=== PATIENT | female | born 1955 | race Caucasian/White ===

== ENCOUNTER → 2018-02-20 14:47 | Outpatient (CLI) | payer OTHER, SELFPAY ==
--- NOTE | 2018-02-20 14:49 | BI_ITS ---
MAMMOGRAPHY - BILATERAL SCREENING REASON FOR EXAM: Female, 62 years old. Routine annual screening examination. PERTINENT HISTORY: Non-contributory. TECHNIQUE: Digital bilateral breast pilo (3D mammographic acquisition) in the CC and MLO projections. 2-D mediolateral oblique (MLO) and craniocaudad (CC) views of both breasts were obtained. CAD: Full Field Digital Mammography with Computer Added Detection was performed. COMPARISON: Comparison is made with prior study dated March 02, 2012 and July 14, 2009. FINDINGS: Breast Composition: The breasts are heterogeneously dense, which may obscure small masses. There are no dominant masses or suspicious calcifications. A tissue clip marker is seen in the deep upper lateral portion of the right breast. No other significant abnormalities are identified. There has been no significant change since the prior study. BI/SCREENING MAMM (CAD), BILAT IMPRESSION: Stable bilateral screening mammogram. Yearly follow-up mammogram recommended. (A) ASSESSMENT CATEGORY: BIRADS Category 2: Benign. A letter regarding these results will be sent to the patient by the facility within 30 days. Approximately 10% of breast cancers are not detected by mammography. A normal mammogram should not delay biopsy of a clinically suspicious abnormality. [id number] Electronically Signed: Juan F Watkins MD at 8:33 EDT Tel [phone], Service support ,
== END ==
PROVIDERS: Family Provider Family Medicine; PCP Family Medicine; Visit Provider Family Medicine
DX: Z12.31 Encounter for screening mammogram for malignant neoplasm of breast (principal)
CPT/HCPCS: 77063; 77067

== ENCOUNTER → 2019-05-21 | Outpatient (CLI) | payer MEDICARE, OTHER, SELFPAY ==
[2019-03-27 14:36] VITALS: BMI 33.5
--- NOTE | 2019-05-21 14:37 | BI_ITS ---
MAMMOGRAPHY - BILATERAL SCREENING REASON FOR EXAM: Female, 64 years old. Routine annual screening examination. PERTINENT HISTORY: Non-contributory. Palpable lump in the inner aspect of the left breast. TECHNIQUE: Digital bilateral breast enzo (3D mammographic acquisition) in the CC and MLO projections. 2-D mediolateral oblique (MLO) and craniocaudad (CC) views of both breasts were obtained. CAD: Full Field Digital Mammography with Computer Added Detection was performed. COMPARISON: Comparison is made with prior study dated February 20, 2018 and March 02, 2012. FINDINGS: Breast Composition: The breasts are heterogeneously dense, which may obscure small masses. There are no dominant masses or suspicious calcifications. No other significant abnormalities are identified. There has been no significant change since the prior study. BI/SCREEN MAMM (CAD) W/ENZO BILAT IMPRESSION: Stable bilateral screening mammogram. Yearly follow-up mammogram recommended. (A) ASSESSMENT CATEGORY: BIRADS Category 2: Benign. A letter regarding these results will be sent to the patient by the facility within 30 days. Approximately 10% of breast cancers are not detected by mammography. A normal mammogram should not delay biopsy of a clinically suspicious abnormality. [id number] Electronically Signed: Juan F Watkins, at 15:43 EDT , Service support ,
== END | disposition home or self-care (01) ==
LOC: OPBI 14:33
PROVIDERS: Family Provider Family Medicine; PCP Family Medicine; Referring Provider Family Medicine; Visit Provider Family Medicine
DX: Z12.31 Encounter for screening mammogram for malignant neoplasm of breast (principal)
CPT/HCPCS: 77063; 77067

== ENCOUNTER → 2019-05-24 | Outpatient (CLI) | payer MEDICARE, OTHER, SELFPAY ==
[2019-03-27 14:36] VITALS: BMI 33.5
--- NOTE | 2019-05-24 09:58 | US_ITS ---
STUDY: ULTRASOUND BREAST - LEFT REASON FOR EXAM: Female, 64 years old. Abnormal screening mammogram. TECHNIQUE: Axial and longitudinal images of the LEFT breast were performed with a high resolution ultrasound transducer. COMPARISON: Comparison is made with prior mammogram dated May 21, 2019. FINDINGS: LEFT Breast: The mammographic abnormality corresponds to a 2.3 cm x 2 cm x 0.9 cm irregular hypoechoic mass at 11:00 position of the breast at 2 cm from nipple. Increased vascularity is also seen. A biopsy is recommended. US/Breast Limited Unilateral IMPRESSION: 2.3 cm x 2 cm x 0.9 cm hypoechoic irregular mass at the 11:00 position of breast at 2 cm from nipple. A biopsy is recommended. ASSESSMENT CATEGORY: BIRADS Category 5: Highly Suggestive of Malignancy - Appropriate Action Should Be Taken. A letter regarding these results will be sent to the patient by the facility within 30 days. Electronically Signed: Juan F Watkins, at 12:22 EDT , Service support ,
== END | disposition home or self-care (01) ==
LOC: OPUS 09:44
PROVIDERS: Family Provider Family Medicine; PCP Family Medicine; Referring Provider Family Medicine; Visit Provider Family Medicine
DX: N63.0 Unspecified lump in unspecified breast (principal); R92.8 Other abnormal and inconclusive findings on diagnostic imaging of breast
CPT/HCPCS: 76642

== ENCOUNTER → 2019-05-29 | Outpatient (CLI) | payer MEDICARE, OTHER, SELFPAY ==
--- NOTE | 2019-05-29 | IMM_PTH ---
PATIENT: VALERIA CRUM LOC: [facility] U#:[id number] AGE/SX: 64/F ROOM: RE05/29/[address]: Dr. Ramsey Choi MD : 1955 BED: DIS: 05/29/2019 SPEC #: [id number] RECD: 05/31/19 09:53 STATUS: KATHY REQ #: [id number] JUANITO: 05/29/19 00:[address]: Ramsey Choi DEPT: IMMUNOHISTOCHEMISTRY RECD BY: Eliz Lamb ENTERED: 05/31/19 09:55 SP TYPE: IMMUNO OTHR DR: Dr. Jaskaran Light MD Tissues: Left breast, NOS Procedures: CALPONIN-1 (add) CK5-6 (add) CK8 (add) E-CAD (add) HER2 GLADIS (add) KI-67 (add) P53 (add) OK (add) P40 (add) ER (initial) PHYSICIAN & INSTITUTION [place] [phone] SPECIMEN INFORMATION: Tissue Source: Left breast Clinical Info: Abnormal left breast ultrasound Specimen Number: [id number] CPT code: 67936, 67263 x6, 88317 x3 METHODOLOGY: Deparaffinized sections of prefer/formalin-fixed tissue or PAP/DQ stained slides are incubated with monoclonal/polyclonal antibodies/oligonucleotide probes. Localization is made via biotin free immunoperoxidase method. Appropriate controls are performed and reacted as expected. Results on target cell population are indicated in the following table: RESULTS: ANTIBODY / CLONE RESULT E-Cad (ECH-6) positive CK8 ([id number]) positive CK5-6 (D5 & 1684) negative * Ki-67 (30-9) positive, moderate P53 (DO-7) positive, rare cells, weak P40 (BC28) negative (high background) * Calponin-1 (KT088A) negative * *?Positive in the myoepithelial cells area of ductal carcinoma in situ. MORPHOMETRIC ANALYSIS ER (clone 6F11) >95%, strong intensity OK (clone 16/1E2) >95%, strong intensity Her-2Neu (clone CB11) 0 The prognostic test for HER2 is performed on formalin-fixed paraffin embedded tissue. A 3+ (positive) staining pattern is defined as intense, homogeneous, complete, circumferential membranous staining in >10% of contiguous tumor cells. A similar weak (2+) staining pattern is interpreted as equivocal. LANIE follow-up testing is recommended for all equivocal cases. Positivity/negativity for ER/OK is reported if > or < 1% of the tumor cells are immuno- reactive, respectively. The ASCO/CAP criteria is used for scoring. Reference: Journal of Clinical Oncology, 2013; 31:1272-5186 & 2010; 16:6763-6515. Duration of fixation: 27.5 Hrs; Sample Adequate: Yes. These assays have not been validated on decalcified tissues. Results should be interpreted with caution given the likelihood of false negativity on decalcified specimens. These tests were developed and their performance characteristics determined by [facility]. They may not have been cleared or approved by the U.S. Food and Drug Administration. The FDA has determined that such clearance or approval is not necessary. 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 Positive for estrogen receptors (favorable prognostic indicator). Positive for progesterone receptors (favorable prognostic indicator). Negative for overexpression of LNU1pss. SJ:jessica 06/03/19
[2019-05-29 15:59] VITALS: BMI 33.5
--- NOTE | 2019-05-29 16:10 | BRBX_PTH ---
PATIENT: VALERIA CRUM LOC: [facility] U#:[id number] AGE/SX: 64/F ROOM: RE05/29/[address]: Dr. Ramsey Choi MD : 1955 BED: DIS: 05/29/2019 SPEC #: [id number] RECD: 05/29/19 16:58 STATUS: KATHY REYordan #: [id number] JUANITO: 05/29/19 16:[address]: Ramsey Choi DEPT: SURGICAL PATHOLOGY RECD BY: Wilmar Light ENTERED: 05/30/19 09:14 SP TYPE: BREAST BX OTHR DR: Dr. Jaskaran Light MD Tissues: Left breast, NOS Procedures: Surgery Specimen Level IV HEADER OPERATION: Left breast biopsy PRE-OP DIAGNOSIS: Abnormal left breast ultrasound TISSUE SUBMITTED: Left breast tissue MICROSCOPIC DIAGNOSIS Left breast tissue, core biopsy: Invasive ductal carcinoma, nuclear grade 2 (1 cm in greatest dimension). Focal ductal carcinoma in situ. See comment. SJ:jessica 05/31/19 COMMENT Ductal carcinoma in situ shows solid and comedo pattern, nuclear grade 2 comedo necrosis and comprise about 10% of the total tumor volume. Immunohistochemistry ([id number]) supports the above diagnosis. ER/NC/Hfi9pvx studies are being performed on sections of tumor and the results from this study will be reported separately ([id number]). Case has been reviewed in consultation with Dr. Hanson who concurs with the above diagnosis. IDC:AM MICROSCOPIC DESCRIPTION Slides are reviewed. GROSS DESCRIPTION Received in fixative is one container labeled with the patient's name and designated left breast. The specimen consists of two elongated fragments of benavides-yellow fibroadipose tissue each measuring 1.5 cm in length and 0.1 cm in diameter. The entire specimen is submitted in one cassette. / JULIOCESAR:jessica 05/30/19 TC:0 CPT: 84603
== END | disposition home or self-care (01) ==
LOC: LABSPEC 17:00
PROVIDERS: Family Provider Family Medicine; PCP Family Medicine; Referring Provider Surgery; Visit Provider Surgery
DX: R92.8 Other abnormal and inconclusive findings on diagnostic imaging of breast (principal)
CPT/HCPCS: 88305; 88341; 88342

== ENCOUNTER → 2019-06-10 | Outpatient (CLI) | payer MEDICARE, OTHER, SELFPAY ==
[2019-06-06 08:38] VITALS: BMI 31.1
--- NOTE | 2019-06-10 08:09 | CT_ITS ---
HISTORY: BREAST CANCER- NEW DX. Prior csection. HTN-rx controlled. TECHNIQUE: Helically acquired images were obtained of the abdomen and pelvis following the intravenous administration of 100ml ml of Isovue 300 Iodinated contrast. 2D reformats. Oral contrast was administered. A radiation dose optimization technique was used for this scan. COMPARISON: The skin of the chest from the same time FINDINGS: # of images incl. paperwork: [phone] LUNG BASES: Clear. CT abdomen: Some facet arthropathy and degenerative disc disease within the lower lumbar spine The gallbladder contracted. Liver, spleen, pancreas, and adrenal glands, are normal. The kidneys are normal. The aorta is diseased with calcific plaque, but without aneurysm or dissection. CT pelvis: No ascites is present. The the uterus and ovaries are not pathologically enlarged. The appendix is normal. Series 3 image 70. The bladder is normal. Oral contrast is present all the way to the rectum mixed with stool. Diverticulosis is present within the descending and sigmoid colon. CT/Abdomen/Pelvis WITH Contrast IMPRESSION: No acute intra-abdominal or pelvic disease. Individualized dose optimization techniques were used for this CT. at 0323 Reported and signed by: Young Zavala MD Electronically Signed: Young Zavala MD at 3:22 EDT Tel , Service support ,
--- NOTE | 2019-06-10 08:09 | CT_ITS ---
STUDY: CT CHEST WITH CONTRAST REASON FOR EXAM: Female, 64 years old. New diagnosis breast cancer history of hypertension RADIATION DOSAGE (If Supplied By Facility): CTDIvol = ( 16.84 ) mGy, DLP = ( 1444.13 ) mGycm TECHNIQUE: Transaxial imaging was performed following intravenous administration of 100ml IV Isovue 300. Multiplanar coronal and sagittal images were reformatted. Individualized dose optimization techniques were used for this CT. COMPARISON: None. FINDINGS: There is trace lower lobe atelectasis. There is no visualized focal consolidation or suspicious mass. There is no demonstrated pleural abnormality. Normal heart and pericardium. Normal mediastinum. Normal hilar regions. Normal enhanced pulmonary arteries. Normal aorta arch and descending thoracic aorta. There are multi-level degenerative changes of the thoracic spine. There is a visualized biopsy clip in the left breast soft tissues where there is a focal density that measures 2.7 x 0.8 cm. There are asymmetric densities in the right breast soft tissue. CT/Chest WITH Contrast IMPRESSION: No evidence of acute focal consolidation or suspicious nodule within the lungs. No Nonspecific asymmetric breast tissue compared to the left. Biopsied density left breast measuring 2.7 x 0.8 cm. Recommend correlation with mammogram ultrasound findings. Mild degenerative change in the thoracic spine. Electronically Signed: Etta Jorgensen MD at 21:34 EDT Tel , Service support ,
== END | disposition home or self-care (01) ==
LOC: CT 08:08
PROVIDERS: Family Provider Family Medicine; PCP Family Medicine; Referring Provider Internal Medicine Medical Oncology; Visit Provider Internal Medicine Medical Oncology
DX: C50.212 Malignant neoplasm of upper-inner quadrant of left female breast (principal)
CPT/HCPCS: 71260; 74177; Q9967

== ENCOUNTER 2019-06-12 14:02 | Observation (INO) | payer MEDICARE, OTHER, SELFPAY ==
[2019-06-03 16:59] VITALS: BMI 33.5
[2019-06-06 08:38] VITALS: BMI 31.1
[2019-06-07 14:02] LABS: Hematocrit 41.4 % (37-47); Hemoglobin 14.1 g/dL (12.0-15.0); Mean Corp Hgb Conc 34.1 g/dL (32-36); Mean Corpuscular Hgb 30.8 pg (27.0-32.0); Mean Corpuscular Volume 90.4 fL (81-99); Mean Platelet Vol. 10.4 fl (6.2-12.0); Platelet Count 235 K/mm3 (150-450); RBC Distribution Width CV 12.2 % (11.6-14.6); RBC Distribution Width SD 40.2 fl (35.1-43.9); Red Blood Count 4.58 M/mm3 (4.2-5.4); White Blood Count 4.9 K/mm3 (4.4-11.0)
[2019-06-07 14:27] LABS: AST(SGOT) 19 U/L (15-37); Alanine Aminotransfer ALT/SGPT 26 U/L (13-56); Albumin, Serum 3.8 g/dL (3.2-5.0); Alkaline Phosphatase 72 U/L (45-117); Anion Gap 4 (5-15); BUN 15 mg/dL (7-18); BUN/Creat Ratio 13.6 RATIO (10-20); Calcium,Total 9.5 mg/dL (8.5-10.1); Chloride 104 mmol/L (98-107); EST Glomerular Filtration Rate 53 mL/min (>60); Est Glom Filt Rate - Afr Amer 64 mL/min (>60); Globulin 3.9 g/dL (2.2-4.2); Glucose 90 mg/dL (74-106); Potassium 3.9 mmol/L (3.5-5.1); Protein, Total 7.7 g/dL (6.4-8.2); Sodium Level 137 mmol/L (136-145)
[2019-06-12] VITALS (11 sets, daily range): BP systolic 96–139; BP diastolic 55–88; PULSE 71–88; RESP 16–18; TEMP 35.7–36.6; O2SAT 94–99; BMI 29.9
--- NOTE | 2019-06-12 | IMM_PTH ---
PATIENT: VALERIA CRUM LOC: [facility] U#:[id number] AGE/SX: 64/F ROOM: MS315 RE06/12/[address]: Dr. Ramsey Choi MD : 1955 BED: 1 DIS: 06/13/2019 SPEC #: [id number] RECD: 06/17/19 12:26 STATUS: KATHY REQ #: [id number] JUANITO: 06/12/19 00:[address]: Ramsey Choi DEPT: IMMUNOHISTOCHEMISTRY RECD BY: Eliz Lamb ENTERED: 06/17/19 12:29 SP TYPE: IMMUNO OTHR DR: Dr. Jaskaran Light MD Tissues: A - Axillary lymph node, NOS B - Left breast, NOS Procedures: Synapto (add) Calponin-1(initial) CALPONIN-1 (add) CD56 (add) CHROMO (add) CK7 (add) E-CAD (add) Pankeratin (initial) Pankeratin (add) P40 (add) NSE (add) PHYSICIAN & [address] [address] SPECIMEN INFORMATION: Tissue Source: A - Left axillary sentinel lymph node tissue, B - Left breast mastectomy tissue Clinical Info: Malignant neoplasm of upper outer quadrant left breast, ER positive Specimen Number: [id number] A1-A6, B6-B11 CPT code: 26517 x2, 07919 x27 METHODOLOGY: Deparaffinized sections of prefer/formalin-fixed tissue or PAP/DQ stained slides are incubated with monoclonal/polyclonal antibodies/oligonucleotide probes. Localization is made via biotin free immunoperoxidase method. Appropriate controls are performed and reacted as expected. Results on target cell population are indicated in the following table: RESULTS: ANTIBODY / CLONE RESULT Block A1 AE1-3 (AE1/AE3/PCK26) negative CK7 (OV-TL12/30) negative Block A2 AE1-3 (AE1/AE3/PCK26) negative CK7 (OV-TL12/30) negative Block A3 AE1-3 (AE1/AE3/PCK26) negative CK7 (OV-TL12/30) negative Block A4 AE1-3 (AE1/AE3/PCK26) negative CK7 (OV-TL12/30) negative Block A5 AE1-3 (AE1/AE3/PCK26) negative CK7 (OV-TL12/30) negative Block A6 AE1-3 (AE1/AE3/PCK26) negative CK7 (OV-TL12/30) negative Block B6 Calponin-1 (WP158V) positive, focal P40 (BC28) positive, focal Block B7 Calponin-1 (OE215I) positive P40 (BC28) positive Block B8 Calponin-1 (HH620C) positive P40 (BC28) positive Block B9 Calponin-1 (PR540I) positive P40 (BC28) positive Block B10 Calponin-1 (KB194B) positive, focal P40 (BC28) positive, focal E-Cad (ECH-6) positive CD56 (123C3.D5) negative NSE Neuron Specific Enolase positive Chromo (LK2H10) negative Synapto (polyclonal) negative Block B11 Calponin-1 (ZV254S) positive, focal P40 (BC28) positive, focal These tests were developed and their performance characteristics determined by [facility]. They may not have been cleared or approved by the U.S. Food and Drug Administration. The FDA has determined that such clearance or approval is not necessary. INTERPRETATION: A. Left axillary sentinel lymph node tissue, biopsy: Four out of four lymph nodes negative for carcinoma. B. Left breast, mastectomy: Invasive ductal carcinoma. Ductal carcinoma in situ. AM:jessica 06/18/19 Case has been reviewed in consultation with Dr. Sheldon who concurs with the above diagnosis. IDC:SJ
--- NOTE | 2019-06-12 05:56 | HP.PCM_ITS ---
Problem List (1) Breast cancer, left Status: Acute Qualifiers: History and Physical Date of Admission: 06/12/19 Chief Complaint: left breast abn mammo/US Allergies No Known Allergies Allergy (Verified 05/29/19 15:58) [facility] Medical History (Updated 06/03/19 @ 16:56 by Ramsey Choi MD) Breast cancer in female (Acute) Abnormal mammogram of left breast (Acute) Skin lesion of face (Acute) Hypertension (Chronic) Surgical History (Updated 05/29/19 @ 15:57 by Amy Blake) Hx of flexible sigmoidoscopy (Acute) Hx of arthroscopic knee surgery (Acute) History of (Acute) History of left breast biopsy (Acute ~05/2019) History of right breast biopsy (Acute) Family History (Updated 05/29/19 @ 15:57 by Amy Blake) Father Hypertension CVA (cerebral vascular accident) Diabetes Brother Diabetes Social History (Updated 06/03/19 @ 16:59 by Ramsey Choi MD) Smoking Status: Former smoker second hand exposure: No alcohol intake: never substance use type: does not use caffeine: Yes what type of physical activity do you participate in: none frequency: does not exercise HPI HPI HPI: VALERIA CRUM, is a 64 F who presents to the office today for HPI HPI Surgical H&P: Yes HPI: VALERIA CRUM, is a 64 F who presents to the office today for ongoing surgical discussion. My previous office notes of May 29, 2019 are noted below. I performed a ultrasound-guided needle core biopsy upper outer retroareolar left breast. Pathology demonstrates invasive ductal carcinoma nuclear grade two 1 cm in greatest dimension. 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 Estrogen receptor greater than 95% strong. Progesterone receptor greater than 95% strong. HER-2/will 0. 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 Is patient in pain?: No Allergies No Known Allergies Allergy (Verified 05/29/19 15:58) Medications bisoprolol 5 mg-hydrochlorothiazide 6.25 mg tablet 1 tab PO DAILY 03/27/19 [History Confirmed 05/29/19] loratadine 10 mg tablet 10 mg PO DAILY 03/27/19 [History Confirmed 05/29/19] multivitamin tablet 1 tab PO DAILY 03/27/19 [History Confirmed 05/29/19] Is last menstrual period known: No Post menopausal: Yes Patient : No PFSH Medical History (Updated 05/29/19 @ 19:01 by Ramsey Choi MD) Abnormal mammogram of left breast (Acute) Skin lesion of face (Acute) Hypertension (Chronic) Surgical History (Updated 05/29/19 @ 15:57 by Amy Blake) Hx of flexible sigmoidoscopy (Acute) Hx of arthroscopic knee surgery (Acute) History of (Acute) History of left breast biopsy (Acute ~05/2019) History of right breast biopsy (Acute) Family History (Updated 05/29/19 @ 15:57 by Amy Blake) Father Hypertension CVA (cerebral vascular accident) Diabetes Brother Diabetes Social History (Updated 05/29/19 @ 19:04 by Ramsey Choi MD) Smoking Status: Former smoker second hand exposure: No alcohol intake: never substance use type: does not use caffeine: Yes what type of physical activity do you participate in: none frequency: does not exercise HPI HPI HPI: VALERIA CRUM, is a 64 F who presents to the office today for surgical consultation regarding an abnormal left breast mammogram and ultrasound as well as a palpable mass. 64-year-old female. 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 A1. Menarche at age 12. First child was born when she was 26. She did breast-feed. Family history is negative for breast cancer. I have assisted her with 2 previous right breast biopsies. She has not been on any estrogen medication. Her only constitutional symptoms recently with fatigue. By report 1 year ago she noted a left breast mass. She had mammograms performed at that time which were not remarkable. More recently on May 21, 2019 she had screening mammograms performed. These were compared back to February 20, 2018 and compared back to March 02, 2012. There were not felt to be any acute changes. And over read of the mammogram was performed on May 21, 2019 and addendum. There is now felt to be evidence of a 2.3 x 2.2 cm irregular nodular density in the upper retroareolar area of the left breast. BI-RADS Category 0. Ultrasound recommended. A ultrasound was performed at the [facility] on May 24, 2019. There is now a 2.3 x 2 x 0.9 cm irregular hypoechoic mass at 11 o'clock position left breast 2 cm from the nipple. Increased vascularity is seen. BI- RADS Category 5. Biopsy strongly recommended. HPI HPI HPI: VALERIA CRUM, is a 64 F who presents to the office today for ROS General General: Yes fatigue; no weight change, appetite, colon cancer, breast cancer or weakness HEENT HEENT: No difficulty swallowing, eye injury, eye surgery, swollen glands or hoarseness Endo Endocrine: No thyroid disease, diabetes mellitus, thyroid cancer, Hair loss, heat intolerance or cold intolerance Breast Breast: Yes left breast lump, abnormal mammogram and abnormal US; no right breast lump, nipple discharge, breast pain or breast enlargement Cardio Cardiovascular: Yes high blood pressure; no murmur, pacemaker, heart disease, atrial fibrillation, heart attack, heart stent, palpitations, shortness of breat with exertion or chest pain Resp Respiratory: No shortness of breath, No sleep apnea, No cough, No COPD, No asthma, No emphysema, No wheezing Henry Hematologic: No blood thinners, No blood disorders, No bleeding, No anemia, No blood clots Neuro Neurologic: No weakness Exam Const General: cooperative, healthy appearing, comfortable, no acute distress Nutritional Appearance: obese Orientation: alert, awake, oriented x3 HENMT Head: normal to inspection Chest Breast Palpation: No nipple discharge Other: Right breast: No focal mass. No nipple discharge. No axillary or clavicular adenopathy Left breast: Obvious visible mass upper mid left breast. No retraction of the skin but suggestive of possible fixation. Non-mobile. Mildly tender. No axillary or clavicular adenopathy Resp Effort & Inspection: normal respiratory effort Auscultation: clear to auscultation bilaterally Cardio Rate: regular rate Rhythm: regular rhythm Heart Sounds: no murmurs GI Palpation: soft, no hepatosplenomegaly Auscultation: normal bowel sounds Skin Other: Slight erythematous slightly rough flat lesion right lateral anabaptist eyebrow area. Neuro General: alert, awake, oriented x3 Extrem General: no calf tenderness bilaterally Psych Affect: normal affect Office Procedures Biopsy Provider Documentation Ultrasound-guided needle core biopsy upper mid left breast mass Timeout and informed consent was obtained. 64-year-old female was taken to the procedure room placed on the table. A left shoulder roll was placed. The left breast was prepped with Betadine. Ultrasound was performed demonstrating the area in question upper mid left breast. Under ultrasound guidance 1% lidocaine mixed 50-50 with 0.5% Marcaine was used as a local anesthetic. A total of 10 cc was used. A small stab incision was created. A 14-gauge Monopty needle was advanced to prefire depth. Pre-and post fire films were obtained. 2 cores were obtained. A marking clip was left in position. Gentle pressure was held for hemostasis. Steri-Strip Telfa OpSite dressing applied. The specimen was immediately transferred to formalin. She was given activity wound care instructions. Ramsey Choi M.D., F.A.C.S. Biopsy Breast Biopsy: [id number] US Guidance Procedure Time Out Time Out Informed consent given: Yes Consent signed: Yes Time out checklist: patient, procedure, site marked/identified, positioning of patient, supplies available, allergies confirmed, team agrees on procedure Time out staff in room: Yes Time out verified: Yes Time out date: 05/29/19 Time out time: 15:59 Assessment & Plan Problems 1. Abnormal mammogram of left breast R92.8 2. Skin lesion of face L98.9 Plan 64-year-old female with a very suspicious upper mid left breast lesion. BI-RADS Category 5. She is aware of the potential need for further definitive surgery. Follow-up office appointment will be scheduled. I have previously seen her for a right anabaptist skin lesion. I suspect this is solar elastosis or superficial basal cell carcinoma. Treat was recommended. The patient is deferred at this time. The patient has never had a previous colonoscopy. This was briefly discussed with the patient today. We will want to make sure that this is follow-up in the future as well. I very much appreciate the kind opportunity of assisting with her surgical care. CC: Dr. Jaskaran Choi M.D., F.A.C.S. Assessment & Plan Problems 1. Malignant neoplasm of upper-outer quadrant of left breast in female, estrogen receptor positive C50.412; Z17.0 Plan 64-year-old female. Upper outer retroareolar left breast invasive ductal carcinoma with distortion of the nipple areolar complex and edema. I discussed with her treatment options. With the degree of retroareolar involvement I do not personally feel comfortable pursuing breast conservation technique. I believe that she would be a better candidate for left total mastectomy with nuclear tracer and blue dye axillary sentinel lymph node biopsy. We discussed technique, benefit, risks, alternatives. I discussed the potential additional involvement of hematology oncology and radiation oncology. I am recommending that we obtain hematology oncology consultation preoperatively. She would like to be seen here at the [facility] oncology department. She has had an opportunity to ask and have questions answered. We will schedule her definitive surgical treatment to accommodate the possibility for preop evalu ation. I appreciate the ongoing opportunity of assisting with her surgical care. CC: Dr. Jaskaran Choi M.D., F.A.C.S. Orders Referrals: Oncology C50.919 Coding Level of Care Code Off vis,est,level 2 Diagnoses Malignant neoplasm of upper-outer quadrant of left breast in female, estrogen receptor positive C50.412; Z17.0 ??Breast location: upper outer quadrant of breast ??Estrogen receptor status: positive ??Laterality: left 06/03/19 7531 <Electronically signed by Ramsey collazo MD> Date _ Ramsey Choi MD Cosigner Signature: Date (if applicable) CC: Jaskaran Light MD ~ The patient has had a chest and abdominal CT scan. Neither demonstrates obvious metastatic disease. The patient has been seen in consultation by who initiated this metastatic work-up.. The patient presents at this time for left mastectomy with sentinel node biopsy. Pending the results of her lymph nodes if they remain negative then an Oncotype DX study will be obtained as well. She has had an opportunity to ask and have questions answered and desires to proceed as previously discussed. Ramsey Choi M.D., F.A.C.S.
--- NOTE | 2019-06-12 09:30 | NM_ITS ---
PROCEDURE: NUCLEAR MEDICINE Injection Cutler Node - LEFT breast(s). REASON FOR EXAM: Female, 64 years old. Left breast cancer. TECHNIQUE: Cutler node localization using radionuclide methods of the LEFT breast(s) was performed following subcutaneous administration of 1.1 mCi of of sulfur colloid Tc-99m. FINDINGS: 1.1 mCi of technetium labeled sulfur colloid was injected subcutaneously at the biopsy site. NM/Lymph Node Injection Only IMPRESSION: 1.1 mCi of technetium labeled sulfur colloid was injected subcutaneously at the biopsy site for sentinel node imaging. Electronically Signed: Juan F Watkins, at 12:29 EDT , Service support ,
--- NOTE | 2019-06-12 11:59 | PCM.DC.BS ---
Discharge Diet: No Restrictions Discharge Activity: May Not Drive - for 2-3 days or while taking narcotic pain meds. May shower in (days): 6 - May shower after the drains are removed Lifting Restrictions: 10 pounds for 1 week. Call your doctor if your incision/area has: Continuous Slow Oozing, Sudden Increased Bleeding Call your doctor if you observe: Fever of 101 or Higher Suture Line Care: Avoid Pulling/Pushing, Avoid Pinching/Bending Remove Dressing in (days):: 1 Additional Dressing/Incision Instructions:: You may remove your dressings on a daily basis. Utilize a Q-tip and peroxide to cleanse around the drain sites. We applied dry gauze and tape dressing around the drain sites and utilize the biasply wrap for compression. Allergies/Adverse Reactions: Allergies No Known Allergies Allergy (Verified 06/07/19 09:02) Medications to take at Discharge bisoprolol 5 mg-hydrochlorothiazide 6.25 mg tablet 1 tab PO DAILY 03/27/19 loratadine 10 mg tablet 10 mg PO DAILY 03/27/19 Furosemide [Lasix] 20 mg PO DAILY PRN 06/07/19 Hydrocodone Bitart/Apap 5-325 [Bergoo 5/325] 1 - 2 tablet PO Q4H PRN PRN 3 Days #12 tablet 06/13/19 The following prescriptions were given: Hydrocodone Bitart/Apap 5-325 [Bergoo 5/325] 1 - 2 tablet PO Q4H PRN PRN 3 Days #12 tablet PRN Reason: Pain Transmission Status: Sent to [facility] Primary Care Physician: Jaskaran Light MD [Primary Care Provider] - Please Follow Up With: Ramsey Choi MD When: [phone] Call for Monday appt. please
[2019-06-12] MEDS: Isosulfan Blue 1% 5 ML Vial OPERA.SITE (12:09)
--- NOTE | 2019-06-12 13:02 | AXNB_PTH ---
PATIENT: VALERIA CRUM LOC: MS3 U#:[id number] AGE/SX: 64/F ROOM: RI315 RE06/12/[address]: Dr. Ramsey Choi MD : 1955 BED: 1 DIS: 06/13/2019 SPEC #: [id number] RECD: 06/12/19 13:10 STATUS: KATHY REYordan #: [id number] JUANITO: 06/12/19 13:[address]: Ramsey Choi DEPT: SURGICAL PATHOLOGY RECD BY: Marlin Augustine ENTERED: 06/12/19 13:50 SP TYPE: AX NODE BX OTHR DR: Dr. Jaskaran Light MD Tissues: Axillary lymph node, NOS Procedures: Frozen Section (charge) Frozen Section Add'l ([facility]) Surgery Specimen Level IV Surgery Specimen Level HEADER OPERATION: Left total mastectomy with nuclear tracer and blue dye PRE-OP DIAGNOSIS: Malignant neoplasm of upper-outer quadrant of left breast, ER positive TISSUE SUBMITTED: A. Left axillary sentinel lymph node tissue for frozen section, B. Left breast mastectomy tissue, suture trevino axillary aspect of specimen FROZEN SECTION DIAGNOSIS A. Left axillary sentinel lymph nodes, biopsy: Four out of four lymph nodes negative for carcinoma. AM:cc 06/12/19 MICROSCOPIC DIAGNOSIS A. Left axillary sentinel lymph nodes, biopsy: Four out of four lymph nodes negative for metastatic carcinoma. B. Left breast, mastectomy: Invasive ductal carcinoma. Ductal carcinoma in situ. See cancer checklist below. AM:jessica 06/18/19 COMMENT INVASIVE BREAST CANCER SUMMARY: Specimen - total breast Procedure - total mastectomy Specimen integrity - single intact specimen Specimen size - 24.5 x 20 x 6.3 cm Specimen laterality - left breast Invasive tumor: Tumor size - 2.4 x 2 x 1.2 cm Tumor focality - single focus of invasive carcinoma. Macroscopic and Microscopic extent of tumor: Skin (dermis and epidermis) - free of carcinoma Nipple - free of carcinoma Skeletal muscle - not present Histologic type of invasive carcinoma - invasive ductal carcinoma Histologic Grade (Sarahi grade): Glandular/tubular differentiation - score 3 Nuclear pleomorphism - score 3 Mitotic count - score 2 Overall grade - 3 (score of 8) Margins - uninvolved by invasive carcinoma. Distance from closest (superior) margin - 1.3 cm Lymph-Vascular invasion - not identified Dermal lymph-vascular invasion - not identified Ductal carcinoma in situ (DCIS) - Estimated size (extent) of DCIS - 1.8 x 1 x 0.8 cm Number of blocks with DCIS - 6 Number of blocks examined - 16 Architectural patterns - solid and comedo Nuclear grade - grade 3/3 Necrosis - present, focal Lobular carcinoma in situ (LCIS) - not identified Lymph nodes: Number of sentinel lymph nodes examined - 4 Total number of lymph nodes examined (sentinel and nonsentinel) - 4 No evidence of macrometastases, micrometastases or isolated tumor cells. See specimen A and [id number] Microcalcifications - present in carcinoma and non-neoplasm tissue. Treatment effect - no known presurgical therapy. Additional pathologic findings - changes of previous biopsy and mild fibrocystic change. Ancillary studies - previously performed on section of tumor ([id number] / [id number]). ER - positive (>95% with strong intensity) ND - positive (>95% with strong intensity) Her2 will - 0 ([facility]) Clinical history - Mass of left breast. PATHOLOGIC STAGE: pT2 N0(sn) Mx The above summary is in compliance with [employer] (CAP) Cancer Protocols Checklist and [place] Joint Committee on Cancer (AJCC), Staging Manual, 8th Ed. Case has been reviewed in consultation with Dr. Sheldon who concurs with the above diagnosis. IDC:SJ MICROSCOPIC DESCRIPTION Slides are reviewed. GROSS DESCRIPTION A. Received fresh for frozen section consultation labeled with the patient's name is a specimen designated left axillary sentinel lymph node tissue. The specimen consists of an irregular fragment of benavides-yellow fibrofatty tissue measuring 8 x 4 x 1 cm. Dissection reveals four nodules resembling lymph nodes ranging in size from 1 to 3.2 cm. The nodules are submitted in their entirety for frozen section consultation in six blocks as follows: 1 - one lymph node, 2 - one bisected lymph node, 3 - one bisected lymph node, 4-6 - one lymph node, serially sectioned. / AM:jessica 06/12/19 B. Received in fixative is one container labeled with the patient's name and designated left breast mastectomy. The specimen consists of a mastectomy measuring 24.5 x 20 x 6.3 cm and weighing 734 gm. An ellipse of light benavides unremarkable skin containing a centrally located nipple and areola is present. The skin fragment measures 8.5 x 8 cm. Serial sections of the breast reveal a firm, benavides-white speckled mass measuring 2.5 x 2 x 1.2 cm and located 1.3 cm from its closest (superior) margin of excision. No other mass lesions are identified. The remainder of the breast parenchyma is benavides-yellow and interrupted focally by dense, white fibrous streaks. Lap Maker sections are submitted as follows: 1 - nipple and areola, 2 - perpendicular deep margin, 3 - perpendicular superior and inferior margins, 4 - perpendicular medial margin, 5 - perpendicular lateral margin, 6-11 - tumor, totally submitted, 12-16 - guest services representative sections of uninvolved breast parenchyma adjacent to and away from tumor (block 15 & 16 are adjacent to tumor). Note, sections are submitted after additional fixation. / AM:jessica 06/13/19 TC:0 CPT: 28653, 10315, 30198, 47114 x2 ADDENDUM ADDENDUM ADDENDUM ADDENDUM ADDENDUM ADDENDUM ADDENDUM ADDENDUM 07/10/2019 08:12 ADDENDUM 07/10/2019 08:12 ADDENDUM 07/10/2019 08:12 ADDENDUM 07/10/2019 08:12 ADDENDUM 07/10/2019 08:12 An order for Oncotype testing was received from Dr. Brooks. This necessitated case review, block and slide selection by pathologist at [facility]. Breast Cancer Recurrence Score = 22 Results of the complete Oncotype testing (CELLFOR report) are viewable in EMR under: Reports - Pathology - Lab Pathology Report, Scanned.
--- NOTE | 2019-06-12 14:05 | OP.PCM_ITS ---
Problem List (1) Breast cancer, left Status: Acute Qualifiers: Breast location: upper outer quadrant of breast Estrogen receptor status: positive Patient sex: female Qualified Code(s): C50.412 - Malignant neoplasm of upper-outer quadrant of left female breast; Z17.0 - Estrogen receptor positive status [ER+] Report of Operation Date of Procedure: 06/12/19 Pre-Operative Diagnosis: Upper outer quadrant partially retroareolar left breast cancer Post-Operative Diagnosis: same Surgery/Procedure Performed:: Left axillary blue dye and tracer sentinel lymph note biopsy with left total mastectomy Description of Surgical Findings:: Timeout and informed consent was obtained. 64-year-old female was taken out from placement table underwent general endotracheal intubation anesthesia. The left arm was carefully wrapped with cell phone placed writing was in the table. The left breast were sterilely prepped and draped. 2-1/2 cc of isosulfan blue dye was injected retroareolar area massage was performed for 4 minutes. Then a transverse elliptical excision was marked out. Superior flap was created first using electrocautery for hemostasis. I then identified blue dye tracking to the left axilla and I confirmed this with the neoprobe. That infection revealed upon tracking the blue lymphatic to conglomerate of lymph nodes. Using electrocautery and sharp dissection and encircled when she completely dissected free this packet of lymph nodes. Hemostasis was obtained with hemoclips and electrocautery. Specimen was completely excised and sent as sentinel lymph nodes. The inferior flap was then created again using electrocautery. Great care was taken to try to obtain uniformity in the flap superiorly and inferiorly. The specimen was excised from the chest wall using electrocautery and taking the pectoralis fascia with the specimen. Hemostasis was intact with electrocautery. A line on suture was placed in the lateral axillary aspect of the resection specimen. Sterile water was used to irrigate the chest wall hemostasis was nicely intact. 2 stab incisions were made inferior laterally and 15 round TIBURCIO drains were exited. They were the secured to skin with 3-0 nylon the axillary drain was shortened. The medial drain was placed in the subcutaneous flaps. The flaps were then closed using multiple pleating stitch stitching the flaps to the pectoralis major muscle with 3-0 Vicryl. The subdermal tissues were approximated with the same. Were needed interrupted 4-0 Vicryl was used to help approximate the skin edges. Good approximation was achieved. Steri-Strips Telfa dressings applied. The drains were short in length and placed to bulb suction. 4 x 4's and then biasply wrap was applied. Sponge and instrument and needle counts were reported to surgically correct. Blood loss was minimal. She tolerated the procedure well was taken to the re covery area in satisfactory condition without apparent complication. It is of note that the neoprobe was used the excised packet of lymph nodes demonstrated significant readings and then the axilla was quiet subsequent to that. I did not see any additional tissue based upon visualization of blue dye tracking the neoprobe failed to reveal any residual areas of activity. Specimen equals left axillary sentinel lymph nodes and left total mastectomy. Drains 215 round TIBURCIO drains. Blood loss minimal. Ramsey Choi M.D., F.A.C.S. Type of Anesthesia:: General Anesthesiologist: Monroe Bejarano
[2019-06-12] MEDS: HYDROcodone Bitartrate/Apap 5/325 Tablet PO ×2 (18:05→18:58)
[2019-06-12] MEDS: Morphine 2 MG/ML Syringe IV (20:27)
[2019-06-12] MEDS: 0.9% NaCl Peripheral Flush Adult/Peds IV (20:29)
[2019-06-13] MEDS: Morphine 2 MG/ML Syringe IV (00:54)
[2019-06-13 02:27] VITALS: BP 129/58; PULSE 77; RESP 18; TEMP 36.5; O2SAT 98
--- NOTE | 2019-06-13 06:11 | PCM.PN.SRG ---
Objective: Pt still needing morphine for pain - Physical Exam Lungs: - - Skin flaps viable left chest Vital Signs Temp Pulse Resp BP Pulse Ox 97.7 F L 77 18 129/58 H 98 06/13/19 02:27 06/13/19 02:27 06/13/19 02:27 06/13/19 02:27 06/13/19 02:27 Oxygen Flow Rate (L/min) 2 Oxygen Delivery Method Nasal Cannula Weight: 174 lb 9.698 oz Body Mass Index (BMI) 29.9 Intake and Output for Last 24 Hours 06/11/19 06/12/19 06/13/19 23:59 23:59 23:59 Intake Total 1897 / 2467 570 / 570 Output Total 18 / 1048 1030 / 1030 Balance 1879 / 1419 -460 / -460 Medical Necessity - Tobacco Use Smoking Status: Former smoker Tobacco Use: Non-smoker Assessment/Plan All Active Problems (Last Reviewed 06/06/19 @ 08:36 by Sara Alexander) Breast cancer, left (Acute) Breast cancer in female (Acute) Abnormal mammogram of left breast (Acute) Skin lesion of face (Acute) Hx of flexible sigmoidoscopy (Acute) Hx of arthroscopic knee surgery (Acute) History of (Acute) Dressing change and home later today
[2019-06-13 09:06] VITALS: BP 123/68; PULSE 84; RESP 18; TEMP 37.1; O2SAT 99
[2019-06-13] MEDS: HYDROcodone Bitartrate/Apap 5/325 Tablet PO (09:23)
[2019-06-13] MEDS: Loratadine 10 MG Tablet PO (09:24)
[2019-06-13] MEDS: hydroCHLOROthiazide 6.25mg TAB 6.25 MG PO (09:24)
[2019-06-13] MEDS: Bisoprolol Fumarate 5 MG Tablet PO (09:24)
--- NOTE | 2019-06-13 13:09 | CPS ---
STARTED BY NURSING
[2019-06-13 14:42] VITALS: BP 143/72; PULSE 56; RESP 16; TEMP 36.7; O2SAT 100
== END 2019-06-13 14:40 | disposition home or self-care (01) ==
LOC: SDC 15:16
PROVIDERS: Admitting Provider Surgery; Family Provider Family Medicine; PCP Family Medicine; Referring Provider Surgery; Visit Provider Surgery
PROC: (CPT 19307; principal; 2019-06-12 11:45)
DX: C50.412 Malignant neoplasm of upper-outer quadrant of left female breast (principal); Z17.0 Estrogen receptor positive status [ER+]; E78.00 Pure hypercholesterolemia, unspecified; I10 Essential (primary) hypertension; Z79.899 Other long term (current) drug therapy; Z87.891 Personal history of nicotine dependence
CPT/HCPCS: 19303; 38525; 36415; 38792; 80053; 85027; 88305; 88309; 88331; 88332; 88341; 88342; 93005; 96374; 96376; 99218; A9541; J7120; A4216; G0378; G0379; J2405; Q9968

== ENCOUNTER → 2019-07-01 | Outpatient (CLI) | payer MEDICARE, OTHER, SELFPAY ==
[2019-06-12 16:34] VITALS: BMI 29.9
[2019-06-20 10:18] VITALS: BMI 29.9
--- NOTE | 2019-07-01 10:18 | NM_ITS ---
CLINICAL: 64-year-old female with reported history of primary breast carcinoma. WHOLE BODY 99m Tc MDP RADIONUCLIDE BONE SCINTIGRAPHY COMPARISON: CT of the chest, abdomen and pelvis reports 06/10/2019 FINDINGS: Following the intravenous administration of 26.0 mCi of 99m Tc MDP, whole body bone images reveal: 1. Increased radiopharmaceutical concentration is identified in the left proximal humeral metaphysis-diaphysis. 2. Enhanced uptake is identified in the acromioclavicular and sternoclavicular compartments of both shoulders, upper cervical spine posteriorly on the left and right, first thoracic vertebra posteriorly on the left, 12th thoracic vertebra posteriorly on the left and right, the first and fifth lumbar vertebra posteriorly on the left-right, bilateral knees, the right-left hands. 3. The remaining skeletal structures are scintigraphically unremarkable with normal-appearing renal images and urinary bladder activity identified. NM/Bone Scan Whole Body IMPRESSION: 1. The increase in radiopharmaceutical concentration identified in the left proximal humeral metaphysis-diaphysis is of uncertain etiology and may represent previous trauma-fracture. In the setting of known breast carcinoma, correlation with plain film radiography is recommended. 2. Degenerative arthritis appears expressed in the bilateral shoulders, cervical thoracic and lumbar spine, knees bilaterally, right-left hands. Electronically Signed: Juwan Leong DO at 23:48 EDT Tel , Service support ,
== END | disposition home or self-care (01) ==
LOC: NM 10:17
PROVIDERS: Family Provider Family Medicine; PCP Family Medicine; Referring Provider Internal Medicine Medical Oncology; Visit Provider Internal Medicine Medical Oncology
DX: C50.212 Malignant neoplasm of upper-inner quadrant of left female breast (principal)
CPT/HCPCS: 78306

== ENCOUNTER → 2019-07-09 | Outpatient (CLI) | payer MEDICARE, OTHER, SELFPAY ==
[2019-06-12 16:34] VITALS: BMI 29.9
[2019-07-02 16:27] VITALS: BMI 29.9
--- NOTE | 2019-07-09 10:03 | BD_ITS ---
STUDY: DUAL ENERGY X-RAY ABSORPTIOMETRY / DXA REASON FOR EXAM: Female, 64 years old. The patient is postmenopausal. Loss of height. History of breast cancer. TECHNIQUE: Bone Mineral Density (BMD) measurements of lumbar spine and bilateral hips were obtained. COMPARISON: Comparison is made with prior study dated July 14, 2009. FINDINGS: Lumbar Spine (L1-L4): g/cm2 (1.254) / T-score (0.7) / Z-score (2.3) Findings are suggestive of normal bone density with a low fracture risk. Left Femur Total: g/cm2 (1.214) / T-score (1.6) / Z-score (2.8) Left Femoral Neck: g/cm2 (1.174) / T-score (1.0) / Z-score (2.4) Right Femur Total: g/cm2 (1.208) / T-score (1.6) / Z-score (2.8) Right Femoral Neck: g/cm2 (1.189) / T-score (1.1) / Z-score (2.5) The T-Scores on the most recent prior examination were: Lumbar Spine (L1-L4): There has been improvement of bone density since the previous examination. Left Femur Total: which represents a worsening of 5.6%. Right Femur Total: which represents a worsening of 6.5%. BD/Dexa Bone Density Study IMPRESSION: The patient is considered normal as outlined below according to World Kapil Organization (WHO) criteria with a low fracture risk. There has been worsening of bone density since the previous examination. Reference Information: The T-score is the number of standard deviations above or below the standard which is normal for young adults at their peak bone mineral density. The World Health Organization (WHO) interprets the T-scores as follows: Above -1 Normal bone density Between -1 and -2.5 Osteopenia Equal to / or below -2.5 Osteoporosis As a practical clinical guideline, osteopenia may be graded as follows: Mild -1 through -1.5 Moderate -1.6 through -2.0 Severe -2.1 through -2.4 The Z-score is the number of standard deviations above or below age-matched controls. A Z-score of less than -1.5 would be considered abnormal. References: 1. NIH Osteoporosis and Related Bone Diseases http://www.osteo.org 2. International Society for Clinical Densitometry http://www.iscd.org 3. National Osteoporosis Foundation http://www.nof.org Electronically Signed: Juan F Watkins, at 14:54 EDT , Service support ,
== END | disposition home or self-care (01) ==
LOC: OPBD 09:57
PROVIDERS: Family Provider Family Medicine; PCP Family Medicine; Referring Provider Internal Medicine Medical Oncology; Visit Provider Internal Medicine Medical Oncology
DX: M81.0 Age-related osteoporosis without current pathological fracture (principal)
CPT/HCPCS: 77080

== ENCOUNTER → 2019-07-23 | Outpatient (CLI) | payer MEDICARE, OTHER, SELFPAY ==
[2019-07-11 09:50] VITALS: BMI 31.0
--- NOTE | 2019-07-23 15:38 | CT_ITS ---
STUDY: CT LEFT UPPER EXTREMITY / HUMERUS REASON FOR EXAM: Female, 64 years old. Abnormal bone scan. Breast cancer RADIATION DOSAGE (If Supplied By Facility): CTDIvol = ( 27.45 ) mGy, DLP = ( 948.58 ) mGycm TECHNIQUE: High resolution transaxial imaging was performed without the administration of intravenous contrast material. Individualized dose optimization techniques were used for this CT. COMPARISON: None. FINDINGS: Normal subcutis adipose space. There is no demonstrated solid, cystic, or lipomatous mass within the subcutaneous adipose space. Normal visualized muscles. Normal visualized neurovascular bundles. Within the proximal diaphysis, there are scattered intramedullary sclerotic densities which are nonspecific in etiology but may be consistent with blastic metastasis. No lytic destructive changes are noted. CT/Extremity Upper WITH Contrast IMPRESSION: Intramedullary sclerotic densities within the proximal diaphysis of the left humeral shaft which may be consistent with metastatic disease Electronically Signed: Dominguez George MD at 17:13 EDT , Service support ,
== END | disposition home or self-care (01) ==
LOC: CT 15:37
PROVIDERS: Family Provider Family Medicine; PCP Family Medicine; Referring Provider Internal Medicine Medical Oncology; Visit Provider Internal Medicine Medical Oncology
DX: R93.7 Abnormal findings on diagnostic imaging of other parts of musculoskeletal system (principal); C50.212 Malignant neoplasm of upper-inner quadrant of left female breast
CPT/HCPCS: 73201; Q9967

== ENCOUNTER → 2019-11-08 10:53 | Outpatient (CLI) | payer MEDICARE, OTHER, SELFPAY ==
[2019-11-08 08:53] VITALS: BMI 31.8
[2019-11-08 12:08] LABS: AST(SGOT) 18 U/L (15-37); Alanine Aminotransfer ALT/SGPT 34 U/L (13-56); Alkaline Phosphatase 70 U/L (45-117); Bilirubin, Direct 0.12 mg/dL (0.00-0.30); Cholesterol 307 mg/dL (200); High Density Lipoprotein 66 mg/dL; Thyroid Stim Hormone (TSH) 1.76 uIU/mL (0.358-3.74); Triglycerides 334 mg/dL; Very Low Density Lipoprotein 67 mg/dL (5-40)
== END ==
PROVIDERS: Family Provider Family Medicine; PCP Family Medicine; Referring Provider Internal Medicine Cardiovascular Disease; Visit Provider Internal Medicine Cardiovascular Disease
DX: E78.5 Hyperlipidemia, unspecified (principal)
CPT/HCPCS: 36415; 80061; 80076; 84443

== ENCOUNTER → 2019-11-15 10:30 | Outpatient (CLI) | payer MEDICARE, OTHER, SELFPAY ==
[2019-11-08 08:53] VITALS: BMI 31.8
--- NOTE | 2019-11-15 10:31 | ECHOD_ITS ---
Reason For Study: HTN Procedure This was a 2D Doppler, Color Flow transthoracic echocardiogram. Exam performed in department. Left Ventricle Normal LV size. Left ventricular systolic function is normal. The estimated ejection fraction is 60 %. Stage 1 diastolic dysfunction. No regional wall motion abnormalities noted. Right Ventricle Normal RV size. Normal systolic function. Atria Normal left atrium. Normal atrial septum. Mitral Valve Normal mitral valve. Tricuspid Valve Normal tricuspid valve. Mild (1+) tricuspid valve insufficiency. Aortic Valve Normal aortic valve. Pulmonic Valve Normal pulmonic valve. Great Vessels Normal aortic root. Pericardium/Pleural No pericardial effusion. MMode/2D Measurements & Calculations LVIDd: 4.1 cm IVSd: 0.99 cm Ao root diam: 3.7 cm LVIDs: 2.5 cm LVPWd: 0.95 cm RVDd: 3.3 cm FS: 38.1 % LAV(MOD-bp): 31.6 ml LVAd ap4: 21.0 cm2 SV(MOD-sp4): 31.1 ml LAV(MOD-bp) Indexed: 17.7 ml/m2 EDV(MOD-sp4): 49.9 ml LAV(MOD-sp2): 25.8 ml EDV(sp4-el): 51.5 ml LAV(MOD-sp4): 34.5 ml LVAs ap4: 11.2 cm2 ESV(MOD-sp4): 18.7 ml ESV(sp4-el): 18.3 ml EF(MOD-sp4): 62.5 % EF(sp4-el): 64.4 % SV(sp4-el): 33.1 ml LA A4 area: 14.6 cm2 LA dimension(2D): 3.3 cm RA A4 area: 11.4 cm2 Doppler Measurements & Calculations MV E max hernando: 75.4 cm/sec Lat Peak E' Hernando: 10.1 cm/sec Med Peak E' Hernando: 6.5 cm/sec MV A max hernando: 87.0 cm/sec E/E' lat: 7.4 E/E' med: 11.7 MV E/A: 0.87 Ao V2 max: 148.3 cm/sec LV V1 max: 103.5 cm/sec PA V2 max: 85.2 cm/sec Ao max P.8 mmHg LV V1 max P.3 mmHg Ao V2 mean: 97.8 cm/sec Ao mean P.3 mmHg Ao V2 VTI: 28.5 cm TR max hernando: 251.8 cm/sec TR max P.4 mmHg Interpretation Summary Normal LV size. Left ventricular systolic function is normal. The estimated ejection fraction is 60 %. Stage 1 diastolic dysfunction. Ordering Physician: Shaw Boyle Referring Physician: Jaskaran Light Performed By: Dyan Norton, AUNG, RVT
--- NOTE | 2019-11-15 14:32 | STRESSREP ---
Stress Test Report Exercise stress test. 64-year-old lady with a history of coronary artery disease. Medications: Hydrochlorothiazide, bisoprolol. Stress protocol: Rest EKG demonstrates normal sinus rhythm with a rate of 88 bpm normal intervals are noted resting blood pressure is 152/98 mmHg. The patient exercised according to regular Misbah protocol for total duration of 6 minutes the maximum heart rate attained was 157 bpm which was 101% of maximum predicted heart rate the maximum workload was 7 metabolic equivalents. At rest there were no ST or T wave changes noted suggest ischemia at peak exercise upsloping ST changes were noted with no meet the criteria for ischemia. T wave inversions were noted during recovery in lead III. The resting blood pressure was 152/98 with a peak blood pressure of 280/90 mmHg rate-pressure product was 36,200. The test was terminated due to the target heart rate being achieved. Conclusion: Exercise stress test with no EKG criteria for ischemia at a moderate workload. No arrhythmias noted. No angina present. Hypertensive response to exercise.
== END ==
PROVIDERS: Family Provider Family Medicine; PCP Family Medicine; Referring Provider Internal Medicine Cardiovascular Disease; Visit Provider Internal Medicine Cardiovascular Disease
DX: I10 Essential (primary) hypertension (principal); I25.10 Atherosclerotic heart disease of native coronary artery without angina pectoris; Z79.899 Other long term (current) drug therapy
CPT/HCPCS: 93017; 93306

== ENCOUNTER → 2020-05-22 12:50 | Outpatient (CLI) | payer MEDICARE, OTHER, SELFPAY ==
[2020-01-27 12:56] VITALS: BMI 31.5
--- NOTE | 2020-05-22 12:50 | BI_ITS ---
MAMMOGRAPHY - UNILATERAL SCREENING: RIGHT BREAST REASON FOR EXAM: Female, 65 years old. Routine annual screening examination (unilateral). PERTINENT HISTORY: Personal history of breast cancer. Prior left mastectomy. TECHNIQUE: Digital unilateral breast enzo (3D mammographic acquisition) in the CC and MLO projections. 2-D mediolateral oblique (MLO) and craniocaudad (CC) views of both breasts were obtained. CAD: Full Field Digital Mammography with Computer Added Detection was performed. COMPARISON: Comparison is made with prior examination dated May 21, 2019 and February 20, 2018. FINDINGS: Breast Composition: The breasts are heterogeneously dense, which may obscure small masses. There are no dominant masses or suspicious calcifications. No other significant abnormalities are identified. There has been no significant change since the prior study. BI/SCREEN MAMM (CAD) W/ENZO UNI R IMPRESSION: Stable unilateral screening mammogram. Yearly follow-up mammogram recommended. (A) ASSESSMENT CATEGORY: BIRADS Category 1: Negative. A letter regarding these results will be sent to the patient by the facility within 30 days. Approximately 10% of breast cancers are not detected by mammography. A normal mammogram should not delay biopsy of a clinically suspicious abnormality. [id number] Electronically Signed: Juan F Watkins, at 13:40 EDT , Service support ,
== END ==
PROVIDERS: PCP Family Medicine; Referring Provider Internal Medicine Medical Oncology; Visit Provider Internal Medicine Medical Oncology
DX: Z12.31 Encounter for screening mammogram for malignant neoplasm of breast (principal); C50.912 Malignant neoplasm of unspecified site of left female breast
CPT/HCPCS: 77063; 77067

== ENCOUNTER → 2021-05-24 10:57 | Outpatient (CLI) | payer MEDICARE, OTHER, SELFPAY ==
[2021-01-26 13:56] VITALS: BMI 32.8
--- NOTE | 2021-05-24 11:00 | BI_ITS ---
MAMMOGRAPHY - UNILATERAL SCREENING: RIGHT BREAST REASON FOR EXAM: Female, 66 years old. Routine annual screening examination (unilateral). PERTINENT HISTORY: Personal history of breast cancer. Status post left mastectomy. Remote right breast biopsies. TECHNIQUE: Digital unilateral breast enzo (3D mammographic acquisition) in the CC and MLO projections. 2-D mediolateral oblique (MLO) and craniocaudad (CC) views of both breasts were obtained. CAD: Full Field Digital Mammography with Computer Added Detection was performed. COMPARISON: Comparison is made with prior study dated 05/22/2020 and 05/21/2019. FINDINGS: Breast Composition: There are scattered areas of fibroglandular density. There are no dominant masses or suspicious calcifications. No other significant abnormalities are identified. There has been no significant change since the prior study. BI/SCREEN MAMM (CAD) W/ENZO UNI R IMPRESSION: Stable unilateral screening mammogram. Yearly follow-up mammogram recommended. (A) ASSESSMENT CATEGORY: BIRADS Category 1: Negative. A letter regarding these results will be sent to the patient by the facility within 30 days. Approximately 10% of breast cancers are not detected by mammography. A normal mammogram should not delay biopsy of a clinically suspicious abnormality. [id number] Electronically Signed: Juan F Watkins MD at 12:38 EDT , Service support ,
== END ==
PROVIDERS: PCP Family Medicine; Referring Provider Surgery; Visit Provider Surgery
DX: Z12.31 Encounter for screening mammogram for malignant neoplasm of breast (principal)
CPT/HCPCS: 77063; 77067

== ENCOUNTER → 2022-05-25 | Outpatient (CLI) | payer MEDICARE, OTHER, SELFPAY ==
--- NOTE | 2022-05-25 09:56 | BI_ITS ---
MAMMOGRAPHY - UNILATERAL SCREENING: RIGHT BREAST REASON FOR EXAM: Female, 67 years old. Routine annual screening examination (unilateral). PERTINENT HISTORY: Personal history of breast cancer. Prior left mastectomy. Patient complains of right medial thickening. TECHNIQUE: Digital unilateral breast enzo (3D mammographic acquisition) in the CC and MLO projections. 2-D mediolateral oblique (MLO) and craniocaudad (CC) views of both breasts were obtained. CAD: Full Field Digital Mammography with Computer Added Detection was performed. COMPARISON: Comparison is made with prior study dated 05/24/2021 and 05/22/2020. FINDINGS: Breast Composition: There are scattered areas of fibroglandular density. There are no dominant masses or suspicious calcifications. A tissue clip marker is seen in the deep upper lateral aspect of the right breast. No other significant abnormalities are identified. There has been no significant change since the prior study. BI/SCREEN MAMM (CAD) W/ENZO UNI R IMPRESSION: Stable unilateral screening mammogram. Yearly follow-up mammogram recommended. (A) ASSESSMENT CATEGORY: BIRADS Category 2: Benign. A letter regarding these results will be sent to the patient by the facility within 30 days. Approximately 10% of breast cancers are not detected by mammography. A normal mammogram should not delay biopsy of a clinically suspicious abnormality. [id number] Electronically Signed: Juan F Watkins MD at 10:46 EDT ,
== END | disposition home or self-care (01) ==
LOC: OPBI 09:55
PROVIDERS: PCP Family Medicine; Visit Provider Internal Medicine Medical Oncology
DX: Z12.31 Encounter for screening mammogram for malignant neoplasm of breast (principal)
CPT/HCPCS: 77063; 77067

== ENCOUNTER → 2022-08-04 | Outpatient (CLI) | payer MEDICARE, OTHER, SELFPAY ==
--- NOTE | 2022-08-04 08:45 | BD_ITS ---
STUDY: DUAL ENERGY X-RAY ABSORPTIOMETRY / DXA REASON FOR EXAM: Female, 67 years old. Screening for osteoporosis; on AI TECHNIQUE: Bone Mineral Density (BMD) measurements of lumbar spine and bilateral hips were obtained. COMPARISON: Comparison is made with prior study dated 07/09/2019. FINDINGS: Lumbar Spine (L1-L4): g/cm2 (1.153) / T-score (1.0) / Z-score (2.9) Findings are suggestive of normal bone density with a low fracture risk. Left Femur Total: g/cm2 (1.081) / T-score (1.1) / Z-score (2.5) Left Femoral Neck: g/cm2 (0.913) / T-score (0.6) / Z-score (2.3) Right Femur Total: g/cm2 (1.092) / T-score (1.2) / Z-score (2.6) Right Femoral Neck: g/cm2 (0.964) / T-score (1.0) / Z-score (2.7) The T-Scores on the most recent prior examination were: Lumbar Spine (L1-L4): There has been worsening of bone density since the previous examination. Left Femur Total: which represents a worsening of 5.3%. Right Femur Total: which represents a worsening of 3.8%. BD/Dexa Bone Density Study IMPRESSION: The patient is considered normal as outlined below according to World Kapil Organization (WHO) criteria with a low fracture risk. There has been worsening of bone density since the previous examination. Reference Information: The T-score is the number of standard deviations above or below the standard which is normal for young adults at their peak bone mineral density. The World Health Organization (WHO) interprets the T-scores as follows: Above -1 Normal bone density Between -1 and -2.5 Osteopenia Equal to / or below -2.5 Osteoporosis As a practical clinical guideline, osteopenia may be graded as follows: Mild -1 through -1.5 Moderate -1.6 through -2.0 Severe -2.1 through -2.4 The Z-score is the number of standard deviations above or below age-matched controls. A Z-score of less than -1.5 would be considered abnormal. References: 1. NIH Osteoporosis and Related Bone Diseases www osteo.org 2. International Society for Clinical Densitometry www iscd.org 3. National Osteoporosis Foundation www nof.org Electronically Signed: Juan F Watkins MD at 15:40 EDT ,
--- NOTE | 2022-08-04 09:23 | NM_ITS ---
CLINICAL: 67-year-old female with history of carcinoma of the breast. WHOLE BODY 99m Tc MDP RADIONUCLIDE BONE SCINTIGRAPHY COMPARISON: Previous whole body bone scintigraphy study dated 07/01/2019 FINDINGS: Following the intravenous administration of 27.0 mCi of 99m Tc MDP, whole body bone images reveal: 1. Persistent increased tracer uptake is noted in the left proximal humeral metaphysis, diaphysis somewhat decreased in intensity compared to the previous examination dated 07/01/2019. 2. Facilitated uptake is noted in the patellofemoral compartments of both knees, the medial tibial compartment of the right knee, the posterior compartment of the right ankle, the acromioclavicular and sternoclavicular compartments of both shoulders, the right and left elbow articulations, the bilateral wrists and hands, the fifth lumbar vertebra posteriorly on the left and right, first thoracic vertebra posteriorly on the left. 3. The remaining skeletal structures are scintigraphically unremarkable with normal-appearing renal images and urinary bladder activity identified. NM/Bone Scan Whole Body IMPRESSION: 1. The increase in tracer concentration identified in the left proximal humerus is of uncertain etiology. Plain film radiography correlation may be of benefit if not previously obtained. 2. Degenerative arthrosis is defined throughout the appendicular and axial skeleton, unchanged. 3. Overall compared to the whole body bone scintigraphy study dated 07/01/2019, there is minimal interval change. Electronically Signed: Juwan Leong, at 8:18 EDT ,
== END | disposition home or self-care (01) ==
LOC: NM 08:43
PROVIDERS: PCP Family Medicine; Visit Provider Nurse Practitioner Family
DX: Z78.0 Asymptomatic menopausal state (principal); M25.551 Pain in right hip; M25.552 Pain in left hip; Z85.3 Personal history of malignant neoplasm of breast
CPT/HCPCS: 77080; 78306; A9503

== ENCOUNTER → 2023-05-29 | Outpatient (CLI) | payer MEDICARE, OTHER, SELFPAY ==
--- NOTE | 2023-05-29 10:48 | BI_ITS ---
MAMMOGRAPHY - UNILATERAL SCREENING: RIGHT BREAST REASON FOR EXAM: Female, 68 years old. Personal history of breast cancer with previous left mastectomy PERTINENT HISTORY: Personal history of breast cancer. TECHNIQUE: Digital examination. Mediolateral oblique (MLO) and craniocaudad (CC) views of the breast were obtained, along with 3-D tomosynthesis. CAD: CAD was performed on this study. COMPARISON: 05/24/2021 FINDINGS: Breast Composition: There are scattered areas of fibroglandular density. There are no dominant masses or suspicious calcifications. No other significant abnormalities are identified. BI/SCREEN MAMM (CAD) W/ENZO UNI R IMPRESSION: Stable bilateral screening mammogram. ASSESSMENT CATEGORY: BIRADS Category 2: Benign. A letter regarding these results will be sent to the patient by the facility within 30 days. FOLLOW UP RECOMMENDATION: Yearly follow up mammogram recommended. (A) [id number] Approximately 10% of breast cancers are not detected by mammography. A normal mammogram should not delay biopsy of a clinically suspicious abnormality. [id number] Electronically Signed: Navjot Dick MD at 12:01 EDT ,
== END | disposition home or self-care (01) ==
LOC: OPBI 10:47
PROVIDERS: PCP Family Medicine; Referring Provider Surgery; Visit Provider Surgery
DX: Z12.31 Encounter for screening mammogram for malignant neoplasm of breast (principal)
CPT/HCPCS: 77063; 77067

== ENCOUNTER → 2024-01-09 | Outpatient (CLI) | payer MEDICARE, OTHER, SELFPAY ==
--- NOTE | 2024-01-09 12:38 | RAD_ITS ---
EXAM: XR CHEST, 2 VIEWS CLINICAL INDICATION: HX OF BREAST CA TECHNIQUE: Frontal and lateral views of the chest. COMPARISON: 08/23/2009 FINDINGS: LUNGS AND PLEURAL SPACES: No significant abnormality. No consolidation or edema. No pneumothorax. No effusion. HEART: No significant abnormality. Cardiac silhouette not enlarged. MEDIASTINUM: Central airways and mediastinal contour are unremarkable. BONES/JOINTS: Amorphous and curvilinear sclerotic foci within the left humeral diaphysis is nonspecific. Degenerative changes in the spine. No acute fracture. SOFT TISSUES: No significant abnormality. VASCULATURE: Vascular calcifications. RAD/Chest PA and Lateral IMPRESSION: 1. Amorphous and curvilinear sclerotic foci within the left humeral diaphysis is nonspecific. Consider bone infarct or perhaps posttreatment changes. Doubt metastatic disease given relative diffuse appearance within a single bone. 2. Otherwise, no acute pathology in the chest. Electronically Signed: Lazaro Link DO at 22:52 EST ,
== END | disposition home or self-care (01) ==
LOC: RAD 12:37
PROVIDERS: PCP Family Medicine; Referring Provider Internal Medicine Medical Oncology; Visit Provider Internal Medicine Medical Oncology
DX: Z85.3 Personal history of malignant neoplasm of breast (principal)
CPT/HCPCS: 71046

== ENCOUNTER → 2024-04-05 | Outpatient (CLI) | payer MEDICARE, OTHER, SELFPAY ==
--- NOTE | 2024-04-05 08:52 | BI_ITS ---
MAMMOGRAPHY - UNILATERAL DIAGNOSTIC: RIGHT BREAST REASON FOR EXAM: Female, 68 years old. right breast density PERTINENT HISTORY: Non-contributory. TECHNIQUE: Digital examination. Mediolateral oblique (MLO) and craniocaudad (CC) views of the breast were obtained. CAD: CAD was performed on this study. COMPARISON: 05/29/2023 FINDINGS: Breast Composition: There are scattered areas of fibroglandular density. There are no dominant masses or suspicious calcifications. No other significant abnormalities are identified. BI/DIAG MAMM W/CAD, UNILAT IMPRESSION: Stable unilateral diagnostic mammogram. ASSESSMENT CATEGORY: BIRADS Category 1: Negative. A letter regarding these results will be sent to the patient by the facility within 30 days. FOLLOW-UP RECOMMENDATION: Yearly follow-up mammogram recommended. (A) Approximately 10% of breast cancers are not detected by mammography. A normal mammogram should not delay biopsy of a clinically suspicious abnormality. Electronically Signed: Juwan Yo MD at 9:45 EDT ,
== END | disposition home or self-care (01) ==
LOC: OPBI 08:50
PROVIDERS: PCP Family Medicine; Visit Provider Surgery
DX: N63.10 Unspecified lump in the right breast, unspecified quadrant (principal); R92.8 Other abnormal and inconclusive findings on diagnostic imaging of breast
CPT/HCPCS: 77061; 77065; G0279

== ENCOUNTER → 2025-04-15 | Outpatient (CLI) | payer MEDICARE, OTHER, SELFPAY ==
--- NOTE | 2025-04-15 14:30 | BI_ITS ---
EXAM: SCREEN MAMM (CAD) W/ENZO UNI R DATE: 04/15/2025 CLINICAL HISTORY: F, Age 69 y/o , SCREENING FOR BREAST CANCER BREAST CANCER RISK ASSESSMENT: Na TECHNIQUE: Right screening digital breast tomosynthesis with 2D and 3D images. Computer aided detection. COMPARISON: Prior exam(s) were compared FINDINGS: TISSUE DENSITY: The breast tissue is heterogenously dense, which may obscure small masses. Right breast Mammographic Findings: No suspicious masses, calcifications or other abnormalities are identified. BI/SCREEN MAMM (CAD) W/ENZO UNI R IMPRESSION: OVERALL FINAL ASSESSMENT: BIRADS 1 NEGATIVE RECOMMENDATION: Routine annual follow-up in 1 Year A letter with findings and recommendations will be mailed to the patient. Reading Location: [id number]
== END | disposition home or self-care (01) ==
LOC: OPBI 14:20
PROVIDERS: PCP Family Medicine; Referring Provider Nurse Practitioner Family; Visit Provider Nurse Practitioner Family
DX: Z12.31 Encounter for screening mammogram for malignant neoplasm of breast (principal)
CPT/HCPCS: 77063; 77067